=== PATIENT | female | born 1970 | race American Indian/Alaskan Native ===

== ENCOUNTER 2019-01-12 17:13 | Emergency (ER) | payer OTHER ==
[2019-01-12 17:35] VITALS: BP 177/110
[2019-01-12] MEDS ORDERED: HYDROcodone/ACETAMINOPHEN 5-325 MG TAB PO ONE (18:20)
--- NOTE | 2019-01-12 18:24 | Emergency Department Report ---
HPI - General Chief Complaint: Fall Time Seen by Provider: 01/12/19 18:15 - HPI HPI: Room 39 The patient is a 48-year-old female presenting with a chief complaint of pain after slip and fall. 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 Patient denies loss of consciousness but states she felt dizzy momentarily. Patient complains of pain in her head, neck right elbow and across her shoulders and back. Patient currently gives her pain score 8/10 ED Past Medical Hx - Past Medical History Previous Medical History?: Yes Hx Hypertension: Yes - Surgical History Past Surgical History?: Yes Additional Surgical History: Ectopic - Family History Family history: no significant - Social History Smoking Status: Never Smoker Substance Use Type: None (denies illicit drug use) - Medications Home Medications: Home Medications Medication Instructions Recorded Confirmed Last Taken Type Cyclobenzaprine [Flexeril] 10 mg PO TID PRN #10 tablet 01/12/19 Unknown Rx HYDROcodone/APAP 5-325 [[place] 1 - 2 each PO Q6HR PRN #10 tablet 01/12/19 Unknow n Rx 5/325] Ibuprofen [Motrin 800 MG tab] 800 mg PO Q8HR PRN #20 tablet 01/12/19 Unknown Rx ED Review of Systems ROS: Stated complaint: HIP PAIN Other details as noted in HPI Constitutional: no symptoms reported Eyes: denies: eye pain ENT: denies: throat pain Respiratory: no symptoms reported Cardiovascular: denies: chest pain Endocrine: no symptoms reported Gastrointestinal: denies: abdominal pain Genitourinary: denies: dysuria Musculoskeletal: back pain, arthralgia Neurological: headache Physical Exam - Physical Exam Vital Signs: Vital Signs 01/12/19 17:33 Temperature 98.3 F Pulse Rate 78 Respiratory 16 Rate Blood Pressure 177/110 O2 Sat by Pulse 100 Oximetry Physical Exam: GENERAL: The patient is well-developed well-nourished female lying on stretcher not appearing to be in acute distress, holding right upper extremity. [] HEENT: Normocephalic. Atraumatic. Extraocular motions are intact. Patient has moist mucous membranes. NECK: Supple. Mild tenderness to palpation at level of C6/C7. No step-offs CHEST/LUNGS: Clear to auscultation. There is no respiratory distress noted. HEART/CARDIOVASCULAR: Regula There is no gallop rub or murmur. SKIN: There is no rash. There is no edema. There is no diaphoresis. NEURO: The patient is awake, alert, and oriented. The patient is cooperative. The patient has no focal neurologic deficits. The patient has normal speech MUSCULOSKELETAL: There is no tenderness or deformity at the right elbow. Mild tenderness to palpation of the mid to distal right humerus. There is no limitation range of motion. There is no evidence of acute injury. ED Course Vital Signs 01/12/19 17:33 Temperature 98.3 F Pulse Rate 78 Respiratory 16 Rate Blood Pressure 177/110 O2 Sat by Pulse 100 Oximetry ED Medical Decision Making - Radiology Data Radiology results: report reviewed (CT head, CT cervical spine, thoracolumbar spine x-ray, right humerus x-ray), image reviewed (CT head, CT cervical spine, thoracolumbar spine x-ray, right humerus x-ray) interpreted by me: Thoracolumbar spine x-ray-no acute fracture Right humerus x-ray-no acute fracture [facility] [address] [place] [address] Cat Scan Report Signed Patient: BREN ROOT MR#: [id number] : 1970 Acct:[id number] Age/Sex: 48 / F ADM Date: 01/12/19 Loc: ED Attending Dr: Ordering Physician: PATTI HERRERA MD Date of Service: 01/12/19 Procedure(s): CT head/brain wo con Accession Number(s): [id number] cc: PATTI HERRERA MD CT head/brain wo con INDICATION / CLINICAL INFORMATION: 48 years Female; pain after slip and fall. TECHNIQUE: Routine CT head without contrast. All CT scans at this location are performed using CT dose reduction for ALARA by means of automated exposure control. COMPARISON: None. FINDINGS: BRAIN / INTRACRANIAL CONTENTS: The brain demonstrate appropriate attenuation. The ventricular system is within normal limits in size and configuration. There is no clear CT ends of acute intracranial hemorrhage or significant mass effect. ORBITS: No significant abnormality of visualized orbits. SINUSES / MASTOIDS: No significant abnormality the visualized paranasal sinuses or mastoid air cells. CRANIOCERVICAL JUNCTION: No significant abnormality. ADDITIONAL FINDINGS: None. IMPRESSION: 1. There is no CT evidence of acute intracranial process. Signer Name: Julian Randle MD Signed: 01/12/2019 7:13 PM Workstation Name: [id number] Transcribed By: MR Dictated By: Julian Randle MD Electronically Authenticated By: Julian Randle MD Signed Date/Time: 01/12/191912 DD/ 10 TD/TT: [facility] [address] [place] [address] Cat Scan Report Signed Patient: BREN ROOT MR#: [id number] : 1970 Acct:[id number] Age/Sex: 48 / F ADM Date: 01/12/19 Loc: ED Attending Dr: Ordering Physician: PATTI HERRERA MD Date of Service: 01/12/19 Procedure(s): CT cervical spine wo con Accession Number(s): [id number] cc: PATTI HERRERA MD CT cervical spine wo con INDICATION / CLINICAL INFORMATION: 48 years Female; pain after slip and fall. TECHNIQUE: Axial CT images of the cervical spine were obtained. Sagittal and coronal reformatted images were produced. All CT scans at this location are performed using CT dose reduction for ALARA by means of automated exposure control. COMPARISON: None available. FINDINGS: POST-SURGICAL CHANGES: None. ALIGNMENT: There is slight reversal of the cervical lordosis. However, there is no significant spondylolisthesis. VERTEBRAE: There is no CT evidence of acute fracture involving the cervical spine. INTRAVERTEBRAL DISCS: This broad-based central disc bulge at C3-4 which effaces the subarachnoid space. The small right foraminal narrowing. There is a more focal central disc bulge at C2-3. There is be mild disc bulge at C4-5 which also effaces the ventral subarachnoid space. The neural foramen are patent. There is notable left facet and uncovertebral joint hypertrophy at C5-6 with moderate left neural foraminal narrowing at. There is also moderate to foraminal narrowing at C6-7, greater on the left. The spondylosis at this level effaces the ventral subarachnoid space at. There is mild right foraminal narrowing C7-T1. PARASPINAL SOFT TISSUES: No prevertebral soft tissue fluid collections are identified. ADDITIONAL FINDINGS: None. IMPRESSION: 1. There is no CT evidence of acute fracture involving the cervical spine. 2. There are multilevel degenerative changes as detailed above. Signer Name: Julian Randle MD Signed: 01/12/2019 7:26 PM Workstation Name: [id number] Transcribed By: MR Dictated By: Julian Randle MD Electronically Authenticated By: Julian Randle MD Signed Date/Time: 01/12/191925 DD/ 20 TD/TT: [address] [address] XRay Report Signed Patient: BREN ROOT MR#: [id number] : 1970 Acct:[id number] Age/Sex: 48 / F ADM Date: 01/12/19 Loc: ED Attending Dr: Ordering Physician: PATTI HERRERA MD Date of Service: 01/12/19 Procedure(s): XR spine thoracolumbar 2V Accession Number(s): [id number] cc: PATTI HERRERA MD Fluoro Time In Minutes: XR spine thoracolumbar 2V INDICATION / CLINICAL INFORMATION: pain after slip and fall. COMPARISON: None available. FINDINGS: BONES/JOINT(S): No vertebral fracture. No significant degenerative changes. Normal alignment. SOFT TISSUES: No significant abnormality. ADDITIONAL FINDINGS: None. Signer Name: Lee Lynch MD Signed: 01/12/2019 6:58 PM Workstation Name: [id number] Transcribed By: JACKY Dictated By: Lee Lynch MD Electronically Authenticated By: Lee Lynch MD Signed Date/Time: 01/12/191857 DD/ 57 TD/TT: [address] [address] XRay Report Signed Patient: BREN ROOT MR#: [id number] : 1970 Acct:[id number] Age/Sex: 48 / F ADM Date: 01/12/19 Loc: ED Attending Dr: Ordering Physician: PATTI HERRERA MD Date of Service: 01/12/19 Procedure(s): XR humerus 2+V RT Accession Number(s): [id number] cc: PATTI HERRERA MD Fluoro Time In Minutes: XR humerus 2+V RT INDICATION / CLINICAL INFORMATION: pain after slip and fall. COMPARISON: None available. FINDINGS: BONES/JOINT(S): No acute fracture or subluxation. No significant degenerative changes. SOFT TISSUES: No significant abnormality. ADDITIONAL FINDINGS: None. Signer Name: Lee Lynch MD Signed: 01/12/2019 6:58 PM Workstation Name: [id number] Transcribed By: JACKY Dictated By: Lee Lynch MD Electronically Authenticated By: Lee Lynch MD Signed Date/Time: 01/12/191857 DD/ 57 TD/TT: - Differential Diagnosis closed head injury, cervical strain, cervical fracture, ICH, right arm cont Critical care attestation.: If time is entered above; I have spent that time in minutes in the direct care of this critically ill patient, excluding procedure time. ED Disposition Clinical Impression: Closed head injury, Acute cervical myofascial strain, Contusion of right arm Disposition: - TO HOME OR SELFCARE Is pt being admited?: No Does the pt Need Aspirin: No Condition: Stable Instructions: Muscle Strain (ED) Prescriptions: Cyclobenzaprine [Flexeril] 10 mg PO TID PRN #10 tablet PRN Reason: Muscle Spasm Ibuprofen [Motrin 800 MG tab] 800 mg PO Q8HR PRN #20 tablet PRN Reason: Pain, Moderate (4-6) HYDROcodone/APAP 5-325 [[place] 5/325] 1 - 2 each PO Q6HR PRN #10 tablet PRN Reason: Pain Referrals: ADRY HARRIS MD [Staff Physician] - 3-5 Days (Dr. Harris is an orthopedic surgeon. Please follow up with him for further evaluation) Time of Disposition: 19:42
--- NOTE | 2019-01-12 19:03 | XRay Report ---
XR humerus 2+V RT INDICATION / CLINICAL INFORMATION: pain after slip and fall. COMPARISON: None available. FINDINGS: BONES/JOINT(S): No acute fracture or subluxation. No significant degenerative changes. SOFT TISSUES: No significant abnormality. ADDITIONAL FINDINGS: None. Signer Name: Lee Lynch MD Signed: 01/12/2019 6:58 PM Workstation Name: [id number]
--- NOTE | 2019-01-12 19:03 | XRay Report ---
XR spine thoracolumbar 2V INDICATION / CLINICAL INFORMATION: pain after slip and fall. COMPARISON: None available. FINDINGS: BONES/JOINT(S): No vertebral fracture. No significant degenerative changes. Normal alignment. SOFT TISSUES: No significant abnormality. ADDITIONAL FINDINGS: None. Signer Name: Lee Lynch MD Signed: 01/12/2019 6:58 PM Workstation Name: [id number]
--- NOTE | 2019-01-12 19:17 | Cat Scan Report ---
CT head/brain wo con INDICATION / CLINICAL INFORMATION: 48 years Female; pain after slip and fall. TECHNIQUE: Routine CT head without contrast. All CT scans at this location are performed using CT dos e reduction for ALARA by means of automated exposure control. COMPARISON: None. FINDINGS: BRAIN / INTRACRANIAL CONTENTS: The brain demonstrate appropriate attenuation. The ventricular system is within normal limits in size and configuration. There is no clear CT ends of acute intracranial he morrhage or significant mass effect. ORBITS: No significant abnormality of visualized orbits. SINUSES / MASTOIDS: No significant abnormality the visualized paranasal sinuses or mastoid air cells. CRANIOCERVICAL JUNCTION: No significant abnormality. ADDITIONAL FINDINGS: None. IMPRESSION: 1. There is no CT evidence of acute intracranial process. Signer Name: Julian Randle MD Signed: 01/12/2019 7:13 PM Workstation Name: [id number]
--- NOTE | 2019-01-12 19:31 | Cat Scan Report ---
CT cervical spine wo con INDICATION / CLINICAL INFORMATION: 48 years Female; pain after slip and fall. TECHNIQUE: Axial CT images of the cervical spine were obtained. Sagittal and coronal reformatted images were pr oduced. All CT scans at this location are performed using CT dose reduction for ALARA by means of aut omated exposure control. COMPARISON: None available. FINDINGS: POST-SURGICAL CHANGES: None. ALIGNMENT: There is slight reversal of the cervical lordosis. However, there is no significant spondy lolisthesis. VERTEBRAE: There is no CT evidence of acute fracture involving the cervical spine. INTRAVERTEBRAL DISCS: This broad-based central disc bulge at C3-4 which effaces the subarachnoid spac e. The small right foraminal narrowing. There is a more focal central disc bulge at C2-3. There is be mild disc bulge at C4-5 which also effaces the ventral subarachnoid space. The neural for amen are patent. There is notable left facet and uncovertebral joint hypertrophy at C5-6 with moderat e left neural foraminal narrowing at. There is also moderate to foraminal narrowing at C6-7, greater on the left. The spondylosis at this level effaces the ventral subarachnoid space at. There is mild r ight foraminal narrowing C7-T1. PARASPINAL SOFT TISSUES: No prevertebral soft tissue fluid collections are identified. ADDITIONAL FINDINGS: None. IMPRESSION: 1. There is no CT evidence of acute fracture involving the cervical spine. 2. There are multilevel degenerative changes as detailed above. Signer Name: Julian Ranlde MD Signed: 01/12/2019 7:26 PM Workstation Name: [id number]
== END 2019-01-12 19:58 | disposition home or self-care (01) ==
LOC: ED 17:13
DX: S16.1XXA Strain of muscle, fascia and tendon at neck level, initial encounter (principal); S09.90XA Unspecified injury of head, initial encounter; S40.021A Contusion of right upper arm, initial encounter; I10 Essential (primary) hypertension; Z79.899 Other long term (current) drug therapy; W01.0XXA Fall on same level from slipping, tripping and stumbling without subsequent striking against object, initial encounter; Y93.89 Activity, other specified; Y92.89 Other specified places as the place of occurrence of the external cause; Y99.8 Other external cause status
CPT/HCPCS: 70450; 72080; 72125